=== PATIENT | male | born 1950 | race Caucasian/White ===

== ENCOUNTER 2024-10-02 07:40 | Emergency (ER) | payer OTHER ==
[2024-10-02 08:33] LABS: BASOPHILS ABSOLUTE AUTO 0.05 10^3/uL (0.00-0.10); BASOPHILS PERCENT AUTO 0.6 % (0.0-1.0); EOSINOPHILS ABSOLUTE AUTO 0.16 10^3/uL (0.10-0.30); HEMATOCRIT 43.3 % (40.0-52.0); HEMOGLOBIN 13.6 g/dL (13.0-17.0); IMMATURE GRAN ABSOLUTE AUTO 0.01 10^3/uL (0.00-0.04); IMMATURE GRAN PERCENT AUTO 0.1 % (0.0-0.4); LYMPHOCYTES ABSOLUTE AUTO 0.83 10^3/uL (1.00-4.00); LYMPHOCYTES PERCENT AUTO 10.3 % (20.0-40.0); MEAN CORPUSCULAR HEMOGLOBIN 27.3 pg (27.0-31.0); MEAN CORPUSCULAR HGB CONC 31.4 g/dL (32.0-36.0); MEAN CORPUSCULAR VOLUME 86.9 fL (82.0-92.0); MEAN PLATELET VOLUME 10.2 fL (7.4-10.4); MONOCYTES ABSOLUTE AUTO 0.03 10^3/uL (0.10-0.80); MONOCYTES PERCENT AUTO 0.4 % (2.0-8.0); NEUTROPHILS ABSOLUTE AUTO 6.99 10^3/uL (2.50-7.00); NEUTROPHILS PERCENT AUTO 86.6 % (50.0-70.0); PLATELET COUNT,PLT 291 10^3/uL (150-400); RED BLOOD CELL COUNT 4.98 10^6/uL (4.50-6.00); RED CELL DISTRIBUTION WIDTH 14.1 % (11.5-14.5); WHITE BLOOD CELL COUNT,WBC 8.07 10^3/uL (5.00-10.00)
[2024-10-02] MEDS ORDERED: Sodium Chloride 0.9% 10 ML Syringe FLUSH PRN (08:40)
[2024-10-02 08:47] LABS: ALBUMIN 3.24 g/dL (3.40-5.00); ANION GAP 13.1 mmol/L (5-15); BILIRUBIN TOTAL 0.6 mg/dL (0.2-1.0); CALCIUM 8.7 mg/dL (8.7-10.3); CREATININE 0.78 mg/dL (0.51-1.17); EST CRCL DRUG DOSING (CG) 95.34 mL/min; POTASSIUM,K 3.1 mmol/L (3.5-5.1)
[2024-10-02 08:55] LABS: APPEARANCE,URINE TURBID (CLEAR); BILIRUBIN,URINE NEGATIVE (NEGATIVE); COLOR,URINE RED (YELLOW); GLUCOSE,URINE NEGATIVE (NEGATIVE); KETONES,URINE NEGATIVE (NEGATIVE); NITRITE,URINE NEGATIVE (NEGATIVE); OCCULT BLOOD,URINE LARGE (NEGATIVE); PH,URINE 7.5 (5.0-9.0); PROTEIN,URINE 100 mg/dL (NEGATIVE)
[2024-10-02 08:56] LABS: LEUKOCYTE ESTERASE,URINE TRACE (NEGATIVE)
[2024-10-02 08:57] LABS: BACTERIA,URINE FEW /HPF (NONE TO FEW); EPITHELIAL CELLS,URINE RARE /LPF; RBC,URINE >100 /HPF (0-5)
[2024-10-02] MEDS: Ondansetron 4 MG/2 ML SDV IVPUSH ONE (09:19)
[2024-10-02] MEDS: Sodium Chloride 0.9% 1,000 ML IV ONE ×2 (09:19→10:27)
[2024-10-02] MEDS: Doxycycline Monohydrate 100 MG Cap PO ONE (11:34)
[2024-10-02] MEDS: Sodium Chloride 0.9% 1,000 ML IV SCH (11:35)
[2024-10-02] MEDS: cefTRIAXone 2 GM Vial IVPUSH ONE (11:35)
== END 2024-10-02 12:26 ==
LOC: KA.ED 07:45
DX: R31.0 Gross hematuria (principal); I95.9 Hypotension, unspecified; E87.20 Acidosis, unspecified; R06.82 Tachypnea, not elsewhere classified; R00.0 Tachycardia, unspecified; R09.02 Hypoxemia; Z79.899 Other long term (current) drug therapy; Z79.82 Long term (current) use of aspirin; Z79.84 Long term (current) use of oral hypoglycemic drugs
CPT/HCPCS: 36415; 51702; 71045; 80053; 81001; 83605; 84484; 85025; 87040; 87086; 87088; 87186; 93010; 96361; 96374; 96375; 99284; 99285-25; A9270-GY; J0696; J2405; J7030

== ENCOUNTER 2024-10-12 08:04 | Inpatient (IN) | payer MEDICARE, OTHER ==
[2024-10-12] MEDS ORDERED: Sodium Chloride 0.9% 10 ML Syringe FLUSH PRN (08:10)
[2024-10-12 08:24] LABS: BASOPHILS ABSOLUTE AUTO 0.12 10^3/uL (0.00-0.10); BASOPHILS PERCENT AUTO 1.8 % (0.0-1.0); EOSINOPHILS ABSOLUTE AUTO 0.52 10^3/uL (0.10-0.30); EOSINOPHILS PERCENT AUTO 8.0 % (1.0-3.0); IMMATURE GRAN ABSOLUTE AUTO 0.08 10^3/uL (0.00-0.04); IMMATURE GRAN PERCENT AUTO 1.2 % (0.0-0.4); LYMPHOCYTES ABSOLUTE AUTO 2.14 10^3/uL (1.00-4.00); LYMPHOCYTES PERCENT AUTO 32.9 % (20.0-40.0); MEAN PLATELET VOLUME 10.7 fL (7.4-10.4); MONOCYTES ABSOLUTE AUTO 0.40 10^3/uL (0.10-0.80); MONOCYTES PERCENT AUTO 6.2 % (2.0-8.0); NEUTROPHILS ABSOLUTE AUTO 3.24 10^3/uL (2.50-7.00); NEUTROPHILS PERCENT AUTO 49.9 % (50.0-70.0); PLATELET COUNT,PLT 328 10^3/uL (150-400); RED BLOOD CELL COUNT 4.88 10^6/uL (4.50-6.00); RED CELL DISTRIBUTION WIDTH 15.0 % (11.5-14.5); WHITE BLOOD CELL COUNT,WBC 6.50 10^3/uL (5.00-10.00)
[2024-10-12 08:42] LABS: ALANINE AMINOTRANSFERASE,ALT 44.0 U/L (14-63); ASPARTATE AMNIOTRANSFERASE,AST 25.0 U/L (15-37); BILIRUBIN TOTAL 0.4 mg/dL (0.2-1.0); BLOOD UREA NITROGEN,BUN 38.0 mg/dL (7-18); CARBON DIOXIDE,CO2 29.9 mmol/L (21.0-32.0); CHLORIDE,CL 101.0 mmol/L (98-107); CREATININE 1.15 mg/dL (0.51-1.17); EST CRCL DRUG DOSING (CG) 58.92 mL/min; ESTIMATED GFR 68.0 mL/min (>=60); GLUCOSE RANDOM 203.0 mg/dL (70-140); POTASSIUM,K 4.0 mmol/L (3.5-5.1); PROTEIN TOTAL,TP 7.5 g/dL (6.4-8.2); SODIUM,NA 139.0 mmol/L (136-145)
[2024-10-12] MEDS: Lactated Ringers 1,000 ML IV ONE (08:49)
[2024-10-12 08:53] LABS: INR 1.0 (0.9-1.1); PTT,PARTIAL THROMBOPLSTIN TIME 24.2 SEC (21.6-32.4)
[2024-10-12 09:20] LABS: APPEARANCE,URINE CLEAR (CLEAR); GLUCOSE,URINE NEGATIVE (NEGATIVE); OCCULT BLOOD,URINE TRACE-INTACT (NEGATIVE)
[2024-10-12 09:26] LABS: EPITHELIAL CELLS,URINE RARE /LPF; OTHER CRYSTALS,URINE NOT SEEN /HPF
[2024-10-12 09:32] LABS: INFLUENZA A NAA NEGATIVE (NEGATIVE); INFLUENZA B NAA NEGATIVE (NEGATIVE); RESPIRATORY SYNCYTIAL VIR NAA NEGATIVE (NEGATIVE)
[2024-10-12 09:34] LABS: CORONAVIRUS COVID-19 NAA NEGATIVE (NEGATIVE)
[2024-10-12] MEDS: Iopamidol 755 Mg/ML 100 ML Bottle IV ONE (09:55)
[2024-10-12 10:52] LABS: CHOLESTEROL HDL 38.0 mg/dL (40-60); CHOLESTEROL LDL CALCULATED 60.0 mg/dL (0-100); CHOLESTEROL TOTAL 128.0 mg/dL (100-200)
[2024-10-12] MEDS ORDERED: Albuterol 0.083% 2.5 MG/3 ML Neb Soln NEB PRN (14:02)
[2024-10-12] MEDS ORDERED: Ondansetron 4 MG Tab.DIS PO PRN (14:02)
[2024-10-12] MEDS ORDERED: 50% Dextrose in Water 50 ML Syringe IVPUSH PRN (14:08)
[2024-10-12] MEDS ORDERED: Glucose Gel 15 GM in 37.5 GM Tube PO PRN (14:08)
[2024-10-12] MEDS: Insulin Lispro 100 Unit/ML 3 ML KwikPen SUBCUT SCH (18:10)
[2024-10-12] MEDS: Insulin Glargine,Human Rec. Analog 100 Units/ML 3 ML Pen SUBCUT SCH (21:41)
[2024-10-14 11:03] LABS: BLOOD UREA NITROGEN,BUN 21.0 mg/dL (7-18); CARBON DIOXIDE,CO2 27.2 mmol/L (21.0-32.0); CHLORIDE,CL 102.0 mmol/L (98-107); CREATININE 0.75 mg/dL (0.51-1.17); EST CRCL DRUG DOSING (CG) 90.04 mL/min; ESTIMATED GFR 96.0 mL/min (>=60); GLUCOSE RANDOM 237.0 mg/dL (70-140); POTASSIUM,K 4.1 mmol/L (3.5-5.1); SODIUM,NA 139.0 mmol/L (136-145)
== END 2024-10-15 11:05 | DRG 65 ==
LOC: KA.ED 08:09 → KA.MS 10:57 → OBSVTOIN 10-14 10:25
PROVIDERS: ADMIT Family Medicine; ATTEND Family Medicine
DX: G45.9 Transient cerebral ischemic attack, unspecified (principal); I63.9 Cerebral infarction, unspecified; I69.354 Hemiplegia and hemiparesis following cerebral infarction affecting left non-dominant side; E11.9 Type 2 diabetes mellitus without complications; N13.8 Other obstructive and reflux uropathy; J98.11 Atelectasis; Z66 Do not resuscitate; I10 Essential (primary) hypertension; I25.10 Atherosclerotic heart disease of native coronary artery without angina pectoris; G47.30 Sleep apnea, unspecified; K21.9 Gastro-esophageal reflux disease without esophagitis; M54.9 Dorsalgia, unspecified; L89.92 Pressure ulcer of unspecified site, stage 2; R29.720 NIHSS score 20; G89.29 Other chronic pain; E11.42 Type 2 diabetes mellitus with diabetic polyneuropathy; F41.9 Anxiety disorder, unspecified; R09.02 Hypoxemia; F32.A Depression, unspecified; E66.9 Obesity, unspecified; K59.09 Other constipation; N40.1 Benign prostatic hyperplasia with lower urinary tract symptoms; Z79.899 Other long term (current) drug therapy; Z79.82 Long term (current) use of aspirin; Z79.84 Long term (current) use of oral hypoglycemic drugs; Z68.32 Body mass index [BMI] 32.0-32.9, adult; Z79.4 Long term (current) use of insulin
CPT/HCPCS: 36415; 70450; 70496; 70498; 71045; 80048; 80053; 80061; 81001; 82140; 82947; 83036; 83605; 83735; 84443; 84484; 85025; 85379; 85610; 85730; 87637; 93010; 96360; 99223-GT; 99239-GT; 99284; 99285-25; A9270-GY; G0378; J1815-GY; J7120; Q3014; Q9967

== ENCOUNTER 2025-02-11 13:42 | Inpatient (IN) | payer MEDICARE ==
[2025-02-11 14:14] LABS: BASOPHILS ABSOLUTE AUTO 0.04 10^3/uL (0.00-0.10); BASOPHILS PERCENT AUTO 0.5 % (0.0-1.0); EOSINOPHILS ABSOLUTE AUTO 0.43 10^3/uL (0.10-0.30); EOSINOPHILS PERCENT AUTO 5.8 % (1.0-3.0); IMMATURE GRAN ABSOLUTE AUTO 0.01 10^3/uL (0.00-0.04); IMMATURE GRAN PERCENT AUTO 0.1 % (0.0-0.4); LYMPHOCYTES ABSOLUTE AUTO 1.35 10^3/uL (1.00-4.00); LYMPHOCYTES PERCENT AUTO 18.3 % (20.0-40.0); MEAN PLATELET VOLUME 10.4 fL (7.4-10.4); MONOCYTES ABSOLUTE AUTO 0.54 10^3/uL (0.10-0.80); MONOCYTES PERCENT AUTO 7.3 % (2.0-8.0); NEUTROPHILS ABSOLUTE AUTO 5.02 10^3/uL (2.50-7.00); NEUTROPHILS PERCENT AUTO 68.0 % (50.0-70.0); PLATELET COUNT,PLT 376 10^3/uL (150-400); RED BLOOD CELL COUNT 4.84 10^6/uL (4.50-6.00); RED CELL DISTRIBUTION WIDTH 14.5 % (11.5-14.5); WHITE BLOOD CELL COUNT,WBC 7.39 10^3/uL (5.00-10.00)
[2025-02-11 14:38] LABS: LACTIC ACID 2.5 mmol/L (0.4-2.0)
[2025-02-11 14:42] LABS: ALANINE AMINOTRANSFERASE,ALT 48.0 U/L (14-63); ASPARTATE AMNIOTRANSFERASE,AST 29.0 U/L (15-37); BILIRUBIN TOTAL 0.2 mg/dL (0.2-1.0); BLOOD UREA NITROGEN,BUN 49.0 mg/dL (7-18); CARBON DIOXIDE,CO2 31.2 mmol/L (21.0-32.0); CHLORIDE,CL 101.0 mmol/L (98-107); CREATININE 1.36 mg/dL (0.51-1.17); EST CRCL DRUG DOSING (CG) 49.1 mL/min; GLUCOSE RANDOM 174.0 mg/dL (70-140); POTASSIUM,K 4.0 mmol/L (3.5-5.1); PROTEIN TOTAL,TP 7.7 g/dL (6.4-8.2); SODIUM,NA 142.0 mmol/L (136-145)
[2025-02-11 14:43] LABS: ESTIMATED GFR 55.0 mL/min (>=60)
[2025-02-11] MEDS ORDERED: Ondansetron 4 MG/2 ML SDV IV PRN (17:00)
[2025-02-11] MEDS ORDERED: 50% Dextrose in Water 50 ML Syringe IVPUSH PRN (17:09)
[2025-02-11] MEDS ORDERED: Glucose Gel 15 GM in 37.5 GM Tube PO PRN (17:09)
[2025-02-11] MEDS: Sennosides/Docusate Sodium 50-8.6 MG Tab PO SCH (20:19)
[2025-02-12 07:19] LABS: BASOPHILS ABSOLUTE AUTO 0.06 10^3/uL (0.00-0.10); BASOPHILS PERCENT AUTO 1.2 % (0.0-1.0); EOSINOPHILS ABSOLUTE AUTO 0.41 10^3/uL (0.10-0.30); EOSINOPHILS PERCENT AUTO 8.2 % (1.0-3.0); IMMATURE GRAN ABSOLUTE AUTO 0.01 10^3/uL (0.00-0.04); IMMATURE GRAN PERCENT AUTO 0.2 % (0.0-0.4); LYMPHOCYTES ABSOLUTE AUTO 1.29 10^3/uL (1.00-4.00); LYMPHOCYTES PERCENT AUTO 25.9 % (20.0-40.0); MEAN PLATELET VOLUME 9.8 fL (7.4-10.4); MONOCYTES ABSOLUTE AUTO 0.37 10^3/uL (0.10-0.80); MONOCYTES PERCENT AUTO 7.4 % (2.0-8.0); NEUTROPHILS ABSOLUTE AUTO 2.85 10^3/uL (2.50-7.00); NEUTROPHILS PERCENT AUTO 57.1 % (50.0-70.0); PLATELET COUNT,PLT 327 10^3/uL (150-400); RED BLOOD CELL COUNT 4.25 10^6/uL (4.50-6.00); RED CELL DISTRIBUTION WIDTH 14.3 % (11.5-14.5); WHITE BLOOD CELL COUNT,WBC 4.99 10^3/uL (5.00-10.00)
[2025-02-12 07:33] LABS: ALANINE AMINOTRANSFERASE,ALT 42.0 U/L (14-63); ASPARTATE AMNIOTRANSFERASE,AST 25.0 U/L (15-37); BILIRUBIN TOTAL 0.2 mg/dL (0.2-1.0); BLOOD UREA NITROGEN,BUN 27.0 mg/dL (7-18); CARBON DIOXIDE,CO2 31.9 mmol/L (21.0-32.0); CHLORIDE,CL 103.0 mmol/L (98-107); CREATININE 0.83 mg/dL (0.51-1.17); EST CRCL DRUG DOSING (CG) 88.3 mL/min; GLUCOSE RANDOM 151.0 mg/dL (70-140); POTASSIUM,K 3.6 mmol/L (3.5-5.1); PROTEIN TOTAL,TP 6.6 g/dL (6.4-8.2); SODIUM,NA 142.0 mmol/L (136-145)
[2025-02-12 07:38] LABS: ESTIMATED GFR 93.0 mL/min (>=60)
[2025-02-12] MEDS: Insulin Lispro 100 Unit/ML 3 ML KwikPen SUBCUT SCH (07:51)
[2025-02-12] MEDS: Glycerin/Propylene Glycol Eye Drop 15 mL Bottle EYEBOTH SCH (20:31)
[2025-02-13 07:33] LABS: ALANINE AMINOTRANSFERASE,ALT 51.0 U/L (14-63); ASPARTATE AMNIOTRANSFERASE,AST 35.0 U/L (15-37); BILIRUBIN TOTAL 0.4 mg/dL (0.2-1.0); BLOOD UREA NITROGEN,BUN 17.0 mg/dL (7-18); CARBON DIOXIDE,CO2 32.9 mmol/L (21.0-32.0); CHLORIDE,CL 102.0 mmol/L (98-107); CREATININE 0.75 mg/dL (0.51-1.17); EST CRCL DRUG DOSING (CG) 97.72 mL/min; GLUCOSE RANDOM 145.0 mg/dL (70-140); POTASSIUM,K 3.6 mmol/L (3.5-5.1); PROTEIN TOTAL,TP 7.0 g/dL (6.4-8.2); SODIUM,NA 143.0 mmol/L (136-145)
[2025-02-13 07:42] LABS: ESTIMATED GFR 96.0 mL/min (>=60)
[2025-02-13 07:43] LABS: BASOPHILS ABSOLUTE AUTO 0.05 10^3/uL (0.00-0.10); BASOPHILS PERCENT AUTO 0.9 % (0.0-1.0); EOSINOPHILS ABSOLUTE AUTO 0.38 10^3/uL (0.10-0.30); EOSINOPHILS PERCENT AUTO 6.8 % (1.0-3.0); IMMATURE GRAN ABSOLUTE AUTO 0.01 10^3/uL (0.00-0.04); IMMATURE GRAN PERCENT AUTO 0.2 % (0.0-0.4); LYMPHOCYTES ABSOLUTE AUTO 1.29 10^3/uL (1.00-4.00); LYMPHOCYTES PERCENT AUTO 23.2 % (20.0-40.0); MEAN PLATELET VOLUME 9.8 fL (7.4-10.4); MONOCYTES ABSOLUTE AUTO 0.43 10^3/uL (0.10-0.80); MONOCYTES PERCENT AUTO 7.7 % (2.0-8.0); NEUTROPHILS ABSOLUTE AUTO 3.40 10^3/uL (2.50-7.00); NEUTROPHILS PERCENT AUTO 61.2 % (50.0-70.0); PLATELET COUNT,PLT 349 10^3/uL (150-400); RED BLOOD CELL COUNT 4.49 10^6/uL (4.50-6.00); RED CELL DISTRIBUTION WIDTH 14.2 % (11.5-14.5); WHITE BLOOD CELL COUNT,WBC 5.56 10^3/uL (5.00-10.00)
[2025-02-13] MEDS: hydrALAZINE 20 MG/ML SDV IV PRN (21:42)
[2025-02-14 07:49] LABS: BASOPHILS ABSOLUTE AUTO 0.04 10^3/uL (0.00-0.10); BASOPHILS PERCENT AUTO 0.7 % (0.0-1.0); EOSINOPHILS ABSOLUTE AUTO 0.31 10^3/uL (0.10-0.30); EOSINOPHILS PERCENT AUTO 5.5 % (1.0-3.0); IMMATURE GRAN ABSOLUTE AUTO 0.02 10^3/uL (0.00-0.04); IMMATURE GRAN PERCENT AUTO 0.4 % (0.0-0.4); LYMPHOCYTES ABSOLUTE AUTO 1.33 10^3/uL (1.00-4.00); LYMPHOCYTES PERCENT AUTO 23.7 % (20.0-40.0); MEAN PLATELET VOLUME 9.8 fL (7.4-10.4); MONOCYTES ABSOLUTE AUTO 0.37 10^3/uL (0.10-0.80); MONOCYTES PERCENT AUTO 6.6 % (2.0-8.0); NEUTROPHILS ABSOLUTE AUTO 3.54 10^3/uL (2.50-7.00); NEUTROPHILS PERCENT AUTO 63.1 % (50.0-70.0); PLATELET COUNT,PLT 378 10^3/uL (150-400); RED BLOOD CELL COUNT 5.06 10^6/uL (4.50-6.00); RED CELL DISTRIBUTION WIDTH 13.9 % (11.5-14.5); WHITE BLOOD CELL COUNT,WBC 5.61 10^3/uL (5.00-10.00)
[2025-02-14 08:50] LABS: ALANINE AMINOTRANSFERASE,ALT 77.0 U/L (14-63); ASPARTATE AMNIOTRANSFERASE,AST 43.0 U/L (15-37); BILIRUBIN TOTAL 0.3 mg/dL (0.2-1.0); BLOOD UREA NITROGEN,BUN 12.0 mg/dL (7-18); CARBON DIOXIDE,CO2 27.2 mmol/L (21.0-32.0); CHLORIDE,CL 102.0 mmol/L (98-107); CREATININE 0.61 mg/dL (0.51-1.17); EST CRCL DRUG DOSING (CG) 120.15 mL/min; GLUCOSE RANDOM 165.0 mg/dL (70-140); POTASSIUM,K 3.7 mmol/L (3.5-5.1); PROTEIN TOTAL,TP 7.6 g/dL (6.4-8.2); SODIUM,NA 139.0 mmol/L (136-145)
[2025-02-14 08:54] LABS: ESTIMATED GFR 102.0 mL/min (>=60)
== END 2025-02-14 15:44 | disposition home or self-care (01) | DRG 698 ==
LOC: KA.ED 13:42 → KA.MS 15:12
PROVIDERS: ADMIT Internal Medicine; ATTEND Internal Medicine
DX: T83.511A Infection and inflammatory reaction due to indwelling urethral catheter, initial encounter (principal); A41.9 Sepsis, unspecified organism; E87.20 Acidosis, unspecified; N13.8 Other obstructive and reflux uropathy; E66.9 Obesity, unspecified; I50.32 Chronic diastolic (congestive) heart failure; N39.0 Urinary tract infection, site not specified; Z66 Do not resuscitate; E11.9 Type 2 diabetes mellitus without complications; Z68.32 Body mass index [BMI] 32.0-32.9, adult; N40.1 Benign prostatic hyperplasia with lower urinary tract symptoms; E78.5 Hyperlipidemia, unspecified; I10 Essential (primary) hypertension; E66.01 Morbid (severe) obesity due to excess calories; G47.30 Sleep apnea, unspecified; K59.00 Constipation, unspecified; K21.9 Gastro-esophageal reflux disease without esophagitis; F41.9 Anxiety disorder, unspecified; F32.A Depression, unspecified; E61.1 Iron deficiency; Z68.30 Body mass index [BMI] 30.0-30.9, adult; Z79.899 Other long term (current) drug therapy; Z79.82 Long term (current) use of aspirin; Z86.73 Personal history of transient ischemic attack (TIA), and cerebral infarction without residual deficits; Z79.4 Long term (current) use of insulin; Z79.84 Long term (current) use of oral hypoglycemic drugs
CPT/HCPCS: 36415; 80053; 82947; 83605; 85025; 87040; 96374; 99284; 99285-25; A9270-GY; J0360; J0696; J1650; J7030; Q3014